=== PATIENT | male | born 1950 | race Caucasian/White ===

== ENCOUNTER 2019-06-30 17:08 | Inpatient (IN) | payer OTHER, SELFPAY ==
[2019-06-30 17:29] VITALS: BP 124/79; PULSE 74; RESP 20; TEMP 36.4; O2SAT 100
[2019-06-30 17:48] LABS: Basophils Percent Auto 0.3 % (0.2-1.2); Eosinophils Percent Auto 0.3 % (0-4.4); Hematocrit 45.2 % (42.0-52.0); Hemoglobin 15.3 g/dL (14.0-18.0); Immature Granulocyte Absolute 0.06 K/mm3 (0.00-0.031); Immature Granulocyte Percent A 0.5 % (0-0.5); Lymphocytes Absolute Auto 1.57 K/mm3 (0.9-3.2); Lymphocytes Percent Auto 13.7 % (18.3-44.2); Mean Corpuscular HGB Conc 33.8 g/dl (32-36); Mean Corpuscular Hemoglobin 30.1 pg (26-34); Mean Corpuscular Volume 88.8 fl (80-100); Mean Platelet Volume 9.5 fl (7.4-10.4); Monocytes Percent Auto 9.1 % (2.6-8.5); Neutrophils Absolute Auto 8.7 K/mm3 (1.3-6.7); Neutrophils Percent Auto 76.1 % (45.5-73.1); Platelet Count Result 412 k/mm3 (150-375); Red Blood Count 5.09 M/mm3 (4.6-6.20); Red Cell Distribution Width 13.2 % (11.5-14.5); White Blood Count 11.4 K/mm3 (4.5-10.0)
[2019-06-30 18:03] LABS: Alanine Aminotransferase 20 U/L (4-50); Albumin Level 4.1 g/dL (3.5-5.1); Alkaline Phosphatase 224 U/L (38-126); Aspartate Amino Transferase 42 U/L (17-59); Bilirubin,Total 0.5 mg/dL (0.2-1.3); Blood Urea Nitrogen 40 mg/dL (9-20); Calcium 9.3 mg/dL (8.4-10.2); Carbon Dioxide 13 mmol/L (22-30); Chloride 102 mmol/L (98-107); Estimated Glomerular Filt Rate 35; Glucose 92 mg/dL (75-110); Lipase 159 U/L (23-300); Potassium 3.7 mmol/L (3.4-5.0); Sodium 139 mmol/L (137-145)
[2019-06-30 21:07] VITALS: BP 138/70; PULSE 76; RESP 16; O2SAT 100
--- NOTE | 2019-06-30 21:20 | ED.NAVMDI ---
HPI - Nausea/Vomiting/Diarrhea General Chief complaint: Nausea/Vomiting/Diarrhea Stated complaint: DIARRHEA Time Seen by Provider: 06/30/19 21:17 Source: patient and RN notes reviewed Mode of arrival: ambulatory Limitations: no limitations History of Present Illness HPI Narrative: Pt is a 69 y/o male presenting to the ED c/o diarrhea. Pt reports he has been experiencing diarrhea for about 9 days. Pt notes he was prescribed an Abx about 3 weeks ago due to an upper dental surgery. Pt states he tested positive for C Diff after a stool sample taken at [facility] last . Pt notes he called his PCP who prescribed Flagyl in which he is currently on his 3rd day of. Pt also reports generalized weakness and decreased PO intake of food due to recent dental surgery, but denies ABD pain, hematochezia, or melena. Pt denies a Hx of renal problems. Pertinent past history: other (None) Onset (ago): day(s) (9) Associated symptoms: weakness (Generalized) and other (Decreased PO intake of food due to recent dental surgery) Treatment prior to arrival: other (Flagyl) Related Data Home Medications Medication Instructions Recorded Confirmed amlodipine 10 mg tablet 10 mg PO DAILY 05/09/19 aspirin 81 mg tablet,delayed 81 mg PO DAILY 05/09/19 release multivitamin 1 tablet PO DAILY 05/09/19 niacin 500 mg tablet 500 mg PO DAILY 05/09/19 olmesartan 40 mg tablet 40 mg PO DAILY 05/09/19 omega-3 1,050 lp-fks-wrc-dpa-fish 1 cap PO DAILY 05/09/19 oil 1,200 mg capsule simvastatin 80 mg tablet 80 mg PO DAILY 05/09/19 metoprolol tartrate 06/30/19 Allergies Allergy/AdvReac Type Severity Reaction Status Date / Time No Known Allergies Allergy Verified 06/30/19 21:14 Review of Systems Review of Systems: All systems reviewed & are unremarkable except as noted in HPI and below Constitutional: Constitutional: Reports weakness (Generalized) and Reports other (Decreased PO intake of food due to recent dental surgery) Gastrointestinal: Gastrointestinal: Denies abdominal pain, Denies melena and Denies hematochezia PMFSH Past Medical History Medical History HLD (hyperlipidemia) HTN (hypertension) Surgical History Surgical History H/O heart artery stent Family History Family History Father Family history of chronic obstructive pulmonary disease, Onset Age: 69 Mother Family history of chronic obstructive pulmonary disease, Onset Age: 77 Social History Social History Smoking status: Former smoker Alcohol intake: current Exam Narrative: Exam Narrative: GENERAL: Well-appearing, well-nourished, and in no acute distress. HEAD: Normocephalic, atraumatic EYES: PERRLA and EOMI, conjunctiva clear without discharge THROAT:Mucous membranes moist, Oropharynx normal without erythema, exudate, peritonsillar swelling or fluctuance NECK: Supple, without lymphadenopathy or mass RESPIRATORY: No respiratory distress, Airway patent, Respirations non-labored, Clear to auscultation without rales, rhonchi or wheeze HEART: Regular rate and rhythm. No murmur heard. Normal peripheral pulses. ABDOMEN: Soft, nontender, nondistended, normal active bowel sounds. No masses. No rebound or guarding, No organomegaly. EXTREMITIES: No edema, normal strength with full range of motion. SKIN: Warm, dry, normal color without rash NEURO: Alert and oriented x3. CN 2-12 grossly intact. No focal deficits. PSYCH: Normal mood and affect. Course Consultations Consultation #1: I Discussed case with Dr. Child and he accepts admission for acute renal failure, dehydration. He wants to continue flagyl for antitiobics. Date: 06/30/19 Time: 21:30 Vital Signs Vital signs: Vital Signs Temperature 97.5 F L 06/30/19 17:29 Pulse Rate 74
[2019-06-30] MEDS: LACTATED RINGERS 1,000 ML 999 ML IV CONT ×2 (21:57→23:42)
[2019-06-30] MEDS: metroNIDAZOLE 250 MG TABLET 500 MG PO (22:27)
[2019-06-30 22:28] VITALS: BP 150/62; PULSE 75
[2019-06-30 22:30] VITALS: BP 137/58; PULSE 83
[2019-06-30 22:31] VITALS: BP 115/65; PULSE 88
--- NOTE | 2019-06-30 22:33 | PC.NURSE ---
pt unable to void. aware. iv fluids in progress
[2019-06-30 22:44] VITALS: BP 136/63; PULSE 67; RESP 20; TEMP 36.2; O2SAT 100; BMI 30.1
--- NOTE | 2019-06-30 22:45 | PM.IMHP ---
H&P: HPI History of Present Illness Chief complaint: acute renal failure dehydration c diff Narrative: This is a 69 year old with known chronic HTN and hyperlipidemia who is currently being treated for c.diff diarrhea which he has had for about 9 days now. The patient was on an antibiotic about three weeks ago while undergoing dental surgery. He started to have diarrhea afterwards. He tested positive for c. diff four days ago. He has been on Flagyl for the past 3 days. He reports that today he felt very tired and had decreased urine output. He denies any fevers, chills, headache, nausea, vomiting, chest pain, shortness of breath, abdominal pain, dysuria, hematuria, rectal bleeding, or LE edema. The patient was evaluated in the ER tonight and was found to be in acute renal failure. We have been asked to admit him to the hospital for further care. He has no other complaints at this time and states he feels much better after getting a fluid bolus in the ER. Review of Systems Review of Systems: All systems reviewed & are unremarkable except as noted in HPI and below PMFSH Past Medical History Medical History HLD (hyperlipidemia) HTN (hypertension) Surgical History Surgical History H/O heart artery stent Family History Family History Father Family history of chronic obstructive pulmonary disease, Onset Age: 69 Mother Family history of chronic obstructive pulmonary disease, Onset Age: 77 Social History Social History Smoking packs per day: 1 Smoking cigarettes per day: 20.0 Years smoked: 30 Smoking pack-years: 30.00 Smoking status: Former smoker Tobacco type: cigarettes Alcohol intake: current Drinks per week: 1 Substance use: never Spiritual care concerns: No Agree to blood products: Yes Meds Home Medications and Allergies Home Medications Medication Instructions Recorded Confirmed Type amlodipine 10 mg tablet 10 mg PO DAILY 05/09/19 07/01/19 History aspirin 81 mg tablet,delayed 162 mg PO DAILY 05/09/19 07/01/19 History release multivitamin 1 tablet PO DAILY 05/09/19 07/01/19 History niacin 500 mg tablet 500 mg PO DAILY 05/09/19 07/01/19 History omega-3 1,050 kc-jlh-zyl-dpa-fish 2 cap PO BID 05/09/19 07/01/19 History oil 1,200 mg capsule simvastatin 80 mg tablet 80 mg PO DAILY 05/09/19 07/01/19 History metronidazole 500 mg tablet 500 mg PO Q8H #30 tablet 06/26/19 07/01/19 Rx diphenoxylate-atropine 1 tablet PO TID PRN 06/30/19 07/01/19 History metoprolol tartrate 25 mg PO DAILY 06/30/19 07/01/19 History olmesartan-hydrochlorothiazide 1 tablet PO DAILY 06/30/19 07/01/19 History Allergies Allergy/AdvReac Type Severity Reaction Status Date / Time No Known Allergies Allergy Verified 06/30/19 21:14 Vital Signs Vital Signs - 24 hr 06/30/19 17:29 06/30/19 21:07 06/30/19 22:28 Temperature 36.4 C L Pulse Rate 74 76 75 Respiratory Rate 20 16 Blood Pressure 124/79 138/70 150/62 H Pulse Oximetry 100 100 06/30/19 22:30 06/30/19 22:31 Temperature Pulse Rate 83 88 Respiratory Rate Blood Pressure 137/58 L 115/65 Pulse Oximetry Exam Const: General: cooperative, healthy appearing, no acute distress, alert and awake Nutritional Appearance: well nourished Orientation/consciousness: patient oriented x3 HENMT: Head: normal to inspection General nose exam: Normal external nose present Face and sinus: normal facial exam Mouth: Yes Normal oral and palatal mucosa present and Yes oropharynx normal Eyes: Pupils: Equal, round and reactive pupils present EOM: EOMs intact bilaterally Neck: Neck: supple and no JVD Thyroid: thyroid normal Lymphatic: lymphadenopathy not noted Resp: Effort & Inspection: normal respiratory effort Auscultation:
[2019-07-01] MEDS: LACTATED RINGERS 1,000 ML 125 ML IV CONT ×3 (00:06→16:09)
--- NOTE | 2019-07-01 00:10 | ADMGEN ---
This patient, Doug Dodd, was admitted to 2 Medical Room 240-01. Patient/family oriented to hospital policies and general routines including ID bracelet, bed and alarms, visiting hours, pain management, procedures, bathroom and other care routines, personal items, smoking policy, room service/diet, and visiting hours. Valuables list has been completed. Information on how to activate the Rapid Response Team has been discussed. Patient/Family are encouraged to report perceived risks to care and to ask questions if they do not understand what they are told or what they should do.
[2019-07-01 05:53] LABS: Basophils Percent Auto 0.3 % (0.2-1.2); Eosinophils Percent Auto 0.3 % (0-4.4); Hematocrit 38.1 % (42.0-52.0); Hemoglobin 12.9 g/dL (14.0-18.0); Immature Granulocyte Absolute 0.04 K/mm3 (0.00-0.031); Immature Granulocyte Percent A 0.4 % (0-0.5); Lymphocytes Absolute Auto 1.24 K/mm3 (0.9-3.2); Lymphocytes Percent Auto 12.8 % (18.3-44.2); Mean Corpuscular HGB Conc 33.9 g/dl (32-36); Mean Corpuscular Hemoglobin 29.9 pg (26-34); Mean Corpuscular Volume 88.2 fl (80-100); Mean Platelet Volume 9.9 fl (7.4-10.4); Monocytes Percent Auto 9.8 % (2.6-8.5); Neutrophils Absolute Auto 7.4 K/mm3 (1.3-6.7); Neutrophils Percent Auto 76.4 % (45.5-73.1); Platelet Count Result 354 k/mm3 (150-375); Red Blood Count 4.32 M/mm3 (4.6-6.20); Red Cell Distribution Width 13.3 % (11.5-14.5); White Blood Count 9.7 K/mm3 (4.5-10.0)
[2019-07-01 05:59] VITALS: BP 117/58; PULSE 77; RESP 20; TEMP 37.2; O2SAT 97
[2019-07-01 05:59] LABS: Blood Urea Nitrogen 36 mg/dL (9-20); Calcium 8.2 mg/dL (8.4-10.2); Carbon Dioxide 16 mmol/L (22-30); Chloride 103 mmol/L (98-107); Estimated CRCL calculation 55 ml/min; Estimated Glomerular Filt Rate 55; Glucose 70 mg/dL (75-110); Potassium 3.4 mmol/L (3.4-5.0); Sodium 137 mmol/L (137-145)
[2019-07-01] MEDS: metroNIDAZOLE 250 MG TABLET 500 MG PO ×4 (06:05→23:58)
[2019-07-01 08:00] VITALS: BP 107/50; PULSE 74
[2019-07-01] MEDS: OMEGA 3 POLYUNSAT FATTY ACIDS 1 GM CAP 2 GM PO ×2 (08:02→17:43)
[2019-07-01] MEDS: SIMVASTATIN 20 MG TABLET 80 MG PO (08:02)
[2019-07-01] MEDS: ASPIRIN 81 MG ENTERIC TABLET 162 MG PO (08:03)
[2019-07-01] MEDS: MULTIVITAMINS THERAPEUTIC TAB (*BKC) 1 TABLET PO (08:04)
[2019-07-01] MEDS: NIACIN SA 500 MG TABLET PO (08:05)
[2019-07-01 08:22] VITALS: PULSE 74
[2019-07-01] MEDS: METOPROLOL TARTRATE 25 MG TABLET PO (08:22)
[2019-07-01 10:00] LABS: Add Urine Microscopic? YES; Appearance Urine Clear (Clear); Bacteria Urine Trace /hpf; Bilirubin Urine Negative (Negative); Blood Urine Negative (Negative); Color Urine Yellow (Yellow); Glucose Urine UA Negative (Negative); Hyaline Casts Urine 30-49 /lpf; Ketones Urine 2+ mg/dL (Negative); Leukocyte Esterase Ur Trace LEU/UL (Negative); Mucus Urine Rare /lpf; Nitrate Urine Negative (Negative); Protein Urine 1+ mg/dL (Negative); RBC Urine 0-2 /hpf (0-2); Squamous Epithelial Cell Urine Rare /hpf (Few); Urobilinogen Urine Negative mg/dL (<2.0); WBC Urine 0-3 /hpf
[2019-07-01 14:00] VITALS: BP 115/58; PULSE 65; RESP 17; TEMP 36.9; O2SAT 95
[2019-07-01 15:45] VITALS: BMI 30.1
--- NOTE | 2019-07-01 16:54 | PM.IMPN ---
Progress Note: A&P Assessment and Plan (1) Acute renal failure (ARF): Qualifiers: Acute renal failure type: unspecified Qualified Code(s): N17.9 - Acute kidney failure, unspecified Code(s): N17.9 - Acute kidney failure, unspecified Status: Acute Assessment and Plan: Creatinine 1.9 on admission. Likely secondary to volume depletion from diarrhea. Creatinine improved to 1.3 today with the IV fluids. Continue IV fluid hydration. Continue to monitor renal function. Urine output not being calculated. (2) Clostridium difficile infection: Code(s): A49.8 - Other bacterial infections of unspecified site Status: Acute Assessment and Plan: Patient diagnosed with C difficile as an outpatient. He continues to have diarrhea without change. Will continue oral Flagyl. Will add oral vancomycin. (3) Metabolic acidosis: Code(s): E87.2 - Acidosis Status: Acute Assessment and Plan: AG 24 on admission. Likely secondary to acute renal failure. Patient started on IV fluids. Metabolic acidosis has improved with the anion gap down to 18. Should continue to improve with rehydration. (4) Dehydration: Code(s): E86.0 - Dehydration Status: Acute Assessment and Plan: Related to above. Continue IV hydration. (5) HLD (hyperlipidemia): Qualifiers: Hyperlipidemia type: unspecified Qualified Code(s): E78.5 - Hyperlipidemia, unspecified Code(s): E78.5 - Hyperlipidemia, unspecified Status: Chronic Assessment and Plan: LFTs within normal limits. Continue Zocor. (6) HTN (hypertension): Qualifiers: Hypertension type: unspecified Qualified Code(s): I10 - Essential (primary) hypertension Code(s): I10 - Essential (primary) hypertension Status: Chronic Assessment and Plan: Blood pressure reviewed on 07/01/2011. Blood pressure well controlled. Continue Norvasc and metoprolol. ACEI on hold due to acute renal failure. Subjective Date/time seen: 07/01/19 16:54 Interval history: 69yo male with known CDiff here for weakness and persistent diarrhea. Assuming care. Chart reviewed. Patient continues to have diarrhea without change. He has had 5 bowel movements today. Still liquid consistency which is unchanged. Denies any abdominal pain. No nausea or vomiting. No chest or shortness of breath. He is eating reasonably well. Exam Narrative: Exam Narrative: Gen - NARD Chest - CTA bilaterally, nml RR CV - RRR S1/S2 Abd - Soft, NT/ND, Positive BS Ext - No pedal edema Psych - Nml mood and affect Skin - Warm and dry Objective Data Vital Signs Vital Signs: Vital Signs - 24 hr 06/30/19 17:29 06/30/19 21:07 06/30/19 22:28 Temperature 97.5 F L Pulse Rate 74 76 75 Respiratory Rate 20 16 Blood Pressure 124/79 138/70 150/62 H Pulse Oximetry 100 100 06/30/19 22:30 06/30/19 22:31 06/30/19 22:44 Temperature 97.2 F L Pulse Rate 83 88 67 Respiratory Rate 20 Blood Pressure 137/58 L 115/65 136/63 Pulse Oximetry 100 07/01/19 05:59 07/01/19 08:00 07/01/19 08:22 Temperature 98.9 F Pulse Rate 77 74 74 Respiratory Rate 20 Blood Pressure 117/58 L 107/50 L Pulse Oximetry 97 07/01/19 14:00 Temperature 98.5 F Pulse Rate 65 Respiratory Rate 17 Blood Pressure 115/58 L Pulse Oximetry 95 Intake/Output Intake/Output: Intake & Output 06/28/19 06/29/19 06/30/19 07/01/19 23:59 23:59 23:59 23:59 Intake Total 1000 2340 Balance 1000 2340 Meds/Results Medications: Active Medications Generic Name Dose Route Start Last Admin Trade Name Freq PRN Reason Stop Dose Admin Amlodipine Besylate 10 mg 07/01/19 09:00 07/01/19 08:21 Norvasc PO Not Given DAILY ROCCO Aspirin 162 mg 07/01/19 09:00 07/01/19 08:03 Aspirin Ec PO 162 mg DAILY ROCCO Administration Fish Oil 2 gm 07/01/19 09:00 07/01/19 08:02 Lovaza PO 07/31/19 09:01
[2019-07-01] MEDS: VANCOMYCIN ORAL 125 MG/2.5 ML SYRUP PO ×2 (17:43→23:58)
[2019-07-01 22:00] VITALS: BP 117/51; PULSE 58; RESP 21; TEMP 37; O2SAT 100
[2019-07-02] MEDS: LACTATED RINGERS 1,000 ML 100 ML IV CONT (01:21)
[2019-07-02] MEDS: VANCOMYCIN ORAL 125 MG/2.5 ML SYRUP PO ×4 (05:29→23:22)
[2019-07-02] MEDS: metroNIDAZOLE 250 MG TABLET 500 MG PO ×4 (05:29→23:22)
[2019-07-02 05:49] LABS: Albumin Level 2.7 g/dL (3.5-5.1); Blood Urea Nitrogen 27 mg/dL (9-20); Calcium 8.3 mg/dL (8.4-10.2); Carbon Dioxide 21 mmol/L (22-30); Chloride 107 mmol/L (98-107); Estimated CRCL calculation 70 ml/min; Estimated Glomerular Filt Rate > 60; Glucose 71 mg/dL (75-110); Magnesium 1.9 mg/dL (1.6-2.3); Potassium 3.4 mmol/L (3.4-5.0); Sodium 140 mmol/L (137-145)
[2019-07-02 06:00] VITALS: BP 127/47; PULSE 63; RESP 18; TEMP 37.1; O2SAT 96
[2019-07-02 08:56] VITALS: PULSE 60
[2019-07-02] MEDS: OMEGA 3 POLYUNSAT FATTY ACIDS 1 GM CAP 2 GM PO ×2 (08:56→17:10)
[2019-07-02] MEDS: SIMVASTATIN 20 MG TABLET 80 MG PO (08:56)
[2019-07-02] MEDS: METOPROLOL TARTRATE 25 MG TABLET PO (08:56)
[2019-07-02] MEDS: NIACIN SA 500 MG TABLET PO (08:56)
[2019-07-02] MEDS: MULTIVITAMINS THERAPEUTIC TAB (*BKC) 1 TABLET PO (08:57)
[2019-07-02] MEDS: AMLODIPINE BESYLATE 5 MG TABLET 10 MG PO (08:57)
[2019-07-02] MEDS: ASPIRIN 81 MG ENTERIC TABLET 162 MG PO (08:57)
[2019-07-02 14:00] VITALS: BP 132/61; PULSE 84; RESP 16; TEMP 36.5; O2SAT 100
--- NOTE | 2019-07-02 15:05 | PM.IMPN ---
Progress Note: A&P Assessment and Plan (1) Acute renal failure (ARF): Qualifiers: Acute renal failure type: unspecified Qualified Code(s): N17.9 - Acute kidney failure, unspecified Code(s): N17.9 - Acute kidney failure, unspecified Status: Acute Assessment and Plan: Creatinine 1.9 on admission. Likely secondary to volume depletion from diarrhea. Creatinine improved to 1.0 today with the IV fluids. Will stop IVF. Continue to monitor. (2) Clostridium difficile infection: Code(s): A49.8 - Other bacterial infections of unspecified site Status: Acute Assessment and Plan: Patient diagnosed with C difficile as an outpatient. He continues to have diarrhea without change. On Flagyl on admission which was continued. Oral Vanco added yesterday without much change. Patient eating solid meals so should improve. (3) Metabolic acidosis: Code(s): E87.2 - Acidosis Status: Acute Assessment and Plan: AG 24 on admission. Likely secondary to acute renal failure and diarrhea. AG improved to 12 today on IVF. Will stop IVF. may have a mild nongap acidosis from the diarrhea. (4) Dehydration: Code(s): E86.0 - Dehydration Status: Acute Assessment and Plan: Related to above. (5) HLD (hyperlipidemia): Qualifiers: Hyperlipidemia type: unspecified Qualified Code(s): E78.5 - Hyperlipidemia, unspecified Code(s): E78.5 - Hyperlipidemia, unspecified Status: Chronic Assessment and Plan: LFTs within normal limits. Continue Zocor. (6) HTN (hypertension): Qualifiers: Hypertension type: unspecified Qualified Code(s): I10 - Essential (primary) hypertension Code(s): I10 - Essential (primary) hypertension Status: Chronic Assessment and Plan: Blood pressure reviewed on 07/02/19. Blood pressure remains well controlled. Continue Norvasc and metoprolol. ACEI on hold due to acute renal failure. Subjective Date/time seen: 07/02/19 15:05 Interval history: 69yo male with known CDiff here for weakness and persistent diarrhea. No abd pain. Still with the diarrhea. Already had 6 BMs today. All liquid. No mealna or hematochezia. No CP ro SOB. No n/v. Eating okay. He states the stools are large volumes Exam Narrative: Exam Narrative: Gen - NARD sitting up in bed Chest - CTA bilaterally, nml RR CV - RRR S1/S2 Abd - Soft, NT/ND, Positive BS Ext - No pedal edema Psych - Nml mood and affect Skin - Warm and dry Objective Data Vital Signs Vital Signs: Vital Signs - 24 hr 07/01/19 22:00 07/02/19 06:00 07/02/19 08:56 Temperature 98.6 F 98.7 F Pulse Rate 58 L 63 60 Respiratory Rate 21 H 18 Blood Pressure 117/51 L 127/47 L Pulse Oximetry 100 96 Intake/Output Intake/Output: Intake & Output 06/29/19 06/30/19 07/01/19 07/02/19 23:59 23:59 23:59 23:59 Intake Total 1000 2930 2489.3 Output Total 150 100 Balance 1000 2780 2389.3 Meds/Results Medications: Active Medications Generic Name Dose Route Start Last Admin Trade Name Freq PRN Reason Stop Dose Admin Amlodipine Besylate 10 mg 07/01/19 09:00 07/02/19 08:57 Norvasc PO 10 mg DAILY ROCCO Administration Aspirin 162 mg 07/01/19 09:00 07/02/19 08:57 Aspirin Ec PO 162 mg DAILY ROCCO Administration Fish Oil 2 gm 07/01/19 09:00 07/02/19 08:56 Lovaza PO 07/31/19 09:01 2 gm BID ROCCO Administration Metoprolol Tartrate 25 mg 07/01/19 09:00 07/02/19 08:56 Lopressor PO 25 mg DAILY ROCCO Administration Metronidazole 500 mg 07/01/19 06:00 07/02/19 11:10 Flagyl PO 500 mg Q6HR ROCCO Administration Metronidazole 500 mg 07/01/19 06:00 07/01/19 07:07 Flagyl PO 07/06/19 22:01 Not Given Q8HR [facility] Multivitamins Therapeutic 1 tablet 07/01/19 09:00 07/02/19 08:57 Multivitamins Therapeutic(*Bkc PO 1 tablet DAILY ROCCO Administration Niacin
[2019-07-02 22:00] VITALS: BP 126/55; PULSE 58; RESP 16; TEMP 36.3; O2SAT 100
[2019-07-03] MEDS: VANCOMYCIN ORAL 125 MG/2.5 ML SYRUP PO ×2 (05:16→12:04)
[2019-07-03] MEDS: metroNIDAZOLE 250 MG TABLET 500 MG PO ×2 (05:16→12:04)
[2019-07-03 06:00] VITALS: BP 131/67; PULSE 74; RESP 16; TEMP 37.1; O2SAT 96
[2019-07-03 09:05] LABS: Blood Urea Nitrogen 24 mg/dL (9-20); Calcium 8.6 mg/dL (8.4-10.2); Carbon Dioxide 19 mmol/L (22-30); Chloride 104 mmol/L (98-107); Estimated CRCL calculation 78 ml/min; Estimated Glomerular Filt Rate > 60; Glucose 73 mg/dL (75-110); Potassium 3.6 mmol/L (3.4-5.0); Sodium 140 mmol/L (137-145)
[2019-07-03] MEDS: AMLODIPINE BESYLATE 5 MG TABLET 10 MG PO (09:11)
[2019-07-03 09:12] VITALS: PULSE 83
[2019-07-03] MEDS: ASPIRIN 81 MG ENTERIC TABLET 162 MG PO (09:12)
[2019-07-03] MEDS: METOPROLOL TARTRATE 25 MG TABLET PO (09:12)
[2019-07-03] MEDS: OMEGA 3 POLYUNSAT FATTY ACIDS 1 GM CAP 2 GM PO (09:13)
[2019-07-03] MEDS: MULTIVITAMINS THERAPEUTIC TAB (*BKC) 1 TABLET PO (09:13)
[2019-07-03] MEDS: NIACIN SA 500 MG TABLET PO (09:13)
[2019-07-03] MEDS: SIMVASTATIN 20 MG TABLET 80 MG PO (09:13)
[2019-07-03 14:00] VITALS: BP 132/56; PULSE 78; RESP 18; TEMP 36.2; O2SAT 100
--- NOTE | 2019-07-03 17:54 | PM.DS ---
DS: Diagnosis Admitting Diagnosis Admitting Diagnosis: Acute kidney failure, unspecified Discharge Diagnosis (1) Acute renal failure (ARF): Qualifiers: Acute renal failure type: unspecified Qualified Code(s): N17.9 - Acute kidney failure, unspecified Code(s): N17.9 - Acute kidney failure, unspecified Status: Acute Assessment and Plan: Creatinine 1.9 on admission. Likely secondary to volume depletion from diarrhea. Creatinine improved to 1.0 with the IV fluids. Cr stable at 0.9 off IV fluids. (2) Clostridium difficile infection: Code(s): A49.8 - Other bacterial infections of unspecified site Status: Acute Assessment and Plan: Patient diagnosed with C difficile as an outpatient treated with Flagyl. He was continued on Flagyl but he continued to have diarrhea without change. Oral Vanco added and diarrhea has slowed and consistency improved. Patient feels he can manage this at home. Suspect this should continue to improve since he is tolerating oral intake. (3) Metabolic acidosis: Code(s): E87.2 - Acidosis Status: Acute Assessment and Plan: AG 24 on admission. Likely secondary to acute renal failure and diarrhea. AG improved to 12. Bicarb worsened on day of discharge but suspect realted to the persistent diarrhea since renal function improving. Patient eating normally. Will have this followed as outpatient. (4) Dehydration: Code(s): E86.0 - Dehydration Status: Acute Assessment and Plan: Related to above. (5) HLD (hyperlipidemia): Qualifiers: Hyperlipidemia type: unspecified Qualified Code(s): E78.5 - Hyperlipidemia, unspecified Code(s): E78.5 - Hyperlipidemia, unspecified Status: Chronic Assessment and Plan: LFTs within normal limits. We continued Zocor. (6) HTN (hypertension): Qualifiers: Hypertension type: unspecified Qualified Code(s): I10 - Essential (primary) hypertension Code(s): I10 - Essential (primary) hypertension Status: Chronic Assessment and Plan: Blood pressure monitored closely. Blood pressure remained well controlled. We continued Norvasc and metoprolol. ARB on hold. DS: Summary Hospital Course Reason for hospitalization: 69yo male here for diarrhea and found to have LARS. Please see H&P for details Hospital Course: As above. Time Spent with Patient Time attestation: Total time spent providing and/or coordinating discharge services: 35 minutes Time spent: Greater than 30 minutes Specific discharge activities: Long discussion with patient. Exam Narrative: Exam Narrative: Gen - NARD sitting in chair Chest - CTA bilaterally, nml RR CV - RRR S1/S2 Abd - Soft, NT/ND, Positive BS Ext - No pedal edema Psych - Nml mood and affect Skin - Warm and dry DS: Data Data Completed and Pending Labs on day of discharge: Labs from last 24 hours 07/03/19 07:54 Sodium 140 Potassium 3.6 Chloride 104 Carbon Dioxide 19 L BUN 24 H Creatinine 0.90 Estim Creat Clear Calc 78 Estimated GFR > 60 Glucose 73 L Calcium 8.6 Discharge Plan Discharge Attending physician on discharge: Wan Díaz Discharging Clinician: Wan Díaz Anticipated Discharge Date/Time: 07/03/19 18:04 Patient Disposition: Home, Self-Care Activity: as tolerated Diet: regular Discharge Instructions: Follow up with her primary care doctor in 1-2 weeks. Call your doctor or return to the emergency department if having rectal bleeding, fevers or recurrent diarrhea off antibiotics. Complete the Flagyl you have at home. Take all of the vancomycin as directed. Patient Instructions: C Diff (Clostridium Difficile) Infection (IP) Stand Alone Forms: General Discharge Information Follow-up/Referrals: Dimitri Mcqueen MD [Primary Care Provider] - 1 Week Discharge Medications: New vancomycin
== END 2019-07-03 19:23 | disposition home or self-care (01) | DRG 683 ==
LOC: ANHED 21:44 → ANH2MED 21:46
PROVIDERS: Family Medicine; Admitting Provider Family Medicine; Emergency Provider General Practice; PCP Emergency Medicine; Visit Provider Internal Medicine
DX: N17.9 Acute kidney failure, unspecified (principal); A04.72 Enterocolitis due to Clostridium difficile, not specified as recurrent; E87.2 Acidosis; E86.0 Dehydration; I10 Essential (primary) hypertension; E78.5 Hyperlipidemia, unspecified
CPT/HCPCS: 36415; 80048; 80053; 80069; 81001; 83690; 83735; 85025; 99285; A9270; J7120

== ENCOUNTER 2024-02-16 14:21 | Emergency (ER) | payer OTHER, SELFPAY ==
[2024-02-16 14:35] VITALS: BP 166/54; PULSE 58; RESP 18; TEMP 36.4; O2SAT 100
--- NOTE | 2024-02-16 14:45 | ED.WOUNDLAC ---
HPI - Wound/Laceration General Chief Complaint: Wound/Laceration Stated Complaint: pt sliced lt thumb Time Seen by Provider: 02/16/24 14:45 Source: patient, RN notes reviewed and old records reviewed Mode of arrival: ambulatory Limitations: no limitations History of Present Illness HPI narrative: 73-year-old male presents to the [facility] with a avulsion of skin to the left distal thumb. Occurred just prior to arrival. Patient states that he was holding pressure to it in can get it to stop bleeding. Unknown last Tdap. Patient is politely declining tetanus at this time Related Data Home Medications Medication Instructions Recorded Confirmed niacin 500 mg tablet 500 mg PO .COMPLEX 07/10/19 02/16/24 omega-3 1,050 bg-wke-zxt-dpa-fish 1 cap PO DAILY 07/10/19 02/16/24 oil 1,200 mg capsule ([place]-3 2100) Allergies Allergy/AdvReac Type Severity Reaction Status Date / Time No Known Allergies Allergy Verified 02/16/24 14:31 Review of Systems Review of Systems: All systems reviewed & are unremarkable except as noted in HPI and below Constitutional: Constitutional: Reports no additional constitutional complaints Eyes: Eyes: Reports no additional eye complaints ENT: Reports system reviewed and no additional complaints, except as documented Cardiovascular: Cardiovascular: Reports no additional cardiovascular complaints, Denies chest pain and Denies dyspnea Respiratory: Respiratory: Reports no additional respiratory complaints, Denies chest congestion, Denies cough and Denies dyspnea Gastrointestinal: Gastrointestinal: Reports no additional gastrointestinal complaints, Denies abdominal pain, Denies nausea and Denies vomiting Musculoskeletal: Musculoskeletal: Reports no additional musculoskeletal complaints Integumentary/Breasts: Skin/Breast: Reports as per HPI Neurologic: Reports system reviewed and no additional complaints, except as documented Psychiatric: Psychiatric: Reports no additional psychiatric complaints Allergic/Immunologic: Allergic/Immunologic: Reports no additional allergic/immunologic complaints PMFSH Past Medical History Medical History Acute pain of right knee Effusion, left knee HLD (hyperlipidemia) HTN (hypertension) Injury of right knee Primary osteoarthritis of right knee Respiratory tract congestion with cough URI, acute Wheezing Surgical History Surgical History H/O heart artery stent Family History Family History Father Family history of chronic obstructive pulmonary disease, Onset Age: 69 Mother Family history of chronic obstructive pulmonary disease, Onset Age: 77 Social History Social History Smoking packs per day: 1 Smoking cigarettes per day: 20.0 Years smoked: 30 Smoking pack-years: 30.00 Smoking status: Former smoker Tobacco type: cigarettes Alcohol intake: current Drinks per week: 1 Substance use: never Current Housing: Decline to Answer Concerned About Future Housing: Decline to Answer Difficulty Paying Gas/Electric Bills: Decline to Answer Difficulty Paying for Meds: Decline to Answer Currently Unemployed: Decline to Answer Education: Decline to Answer Difficulty w/ Childcare or Family Care: Decline to Answer Spiritual care concerns: No Agree to blood products: Yes Comments At the time of my signature, I reviewed and agree with the nursing past medical, surgical, social, and family history. There is no relevant family history pertinent to the patient complaint. Exam Const: General: cooperative, healthy appearing, comfortable, no acute distress, well developed, alert and well nourished Nutritional Appearance: well nourished Orientation/consciousness: patient oriented x3 Limitations: n
== END 2024-02-16 15:07 | disposition home or self-care (01) ==
PROVIDERS: Emergency Provider Nurse Practitioner; PCP Emergency Medicine
DX: S61.002A Unspecified open wound of left thumb without damage to nail, initial encounter (principal); X58.XXXA Exposure to other specified factors, initial encounter; Z87.891 Personal history of nicotine dependence; E78.5 Hyperlipidemia, unspecified; I10 Essential (primary) hypertension; M17.11 Unilateral primary osteoarthritis, right knee; Z95.5 Presence of coronary angioplasty implant and graft
CPT/HCPCS: 99212; G0463